=== PATIENT | female | born 1960 | race Caucasian/White ===

== ENCOUNTER 2018-10-26 11:25 | Emergency (ER) | payer OTHER ==
[~2018-10-26] VITALS: Ht 154.9 cm; Wt 81.8 kg
[~2018-10-26 11:25] MED LIST: METF-960 PO; QUET150T2 PO; SIMV-261 PO
[2018-10-26] MEDS ORDERED: SITA100 PO (11:45)
[2018-10-26] MEDS ORDERED: ZIPR60CA2 PO (11:45)
[2018-10-26] MEDS ORDERED: ATOR40TA28 PO (11:45)
[2018-10-26] MEDS ORDERED: HYD50 PO (11:45)
[2018-10-26] MEDS ORDERED: TRAZ-252 PO (11:45)
[2018-10-26] MEDS ORDERED: CITA-106 PO (11:45)
[2018-10-26] MEDS ORDERED: PIOG30TA10 PO (11:46)
[2018-10-26] MEDS ORDERED: LEVO50 PO (11:46)
[2018-10-26 11:51] LABS: GLUCOSE,POINT OF CARE 177 MG/DL (70-110)
[2018-10-26 13:00] LABS: BASOPHILS % (AUTO) 0.6 % (0.0-2.0); EOSINOPHILS % (AUTO) 1.2 % (1.0-6.0); HEMATOCRIT 40.1 % (36-46); HEMOGLOBIN 12.8 g/dL (12.0-16.0); LYMPHOCYTES # (AUTO) 1.7 K/uL (1.0-4.8); LYMPHOCYTES % (AUTO) 14.4 % (22.0-44.0); MEAN CORPUSCULAR HEMOGLOBIN 27.6 pg (26.0-34.0); MEAN CORPUSCULAR HGB CONC 31.9 G/dL (31.0-37.0); MEAN CORPUSCULAR VOLUME 87 fL (80-100); MONOCYTES # (AUTO) 0.5 K/uL (0.1-1.0); MONOCYTES % (AUTO) 4.1 % (2.0-9.0); NEUTROPHILS # (AUTO) 9.7 K/uL (1.8-7.7); NEUTROPHILS % (AUTO) 79.7 % (40.0-70.0); PLATELET COUNT (AUTO) 231 K/uL (150-450); RED BLOOD CELL COUNT(AUTO) 4.63 MIL/uL (4.00-5.20); RED CELL DISTRIBUTION WIDTH 14.2 % (11.5-14.5)
[2018-10-26 13:10] LABS: ANION GAP 10 mmol/L (8-16); CALCIUM, TOTAL 9.4 mg/dL (8.8-10.5); CARBON DIOXIDE 26 mmol/L (22-29); CHLORIDE 103 mmol/L (98-107); CREATININE 0.86 mg/dL (0.60-1.30); GLOMERULAR FILTR. RATE CALC > 60 mL/min (>60); GLUCOSE,RANDOM 177 mg/dL (70-110); POTASSIUM 3.9 mmol/L (3.5-5.1); SODIUM SERUM 139 mmol/L (136-145); UREA NITROGEN, BLOOD 13 mg/dL (7-18)
[2018-10-26] MEDS ORDERED: SODIUM CHLORIDE 0.9% 1,000 ML IV ONE (13:15)
[2018-10-26] MEDS ORDERED: MORPHINE SULFATE 2 MG/ML SYRINGE IVP ONE (13:15)
[2018-10-26] MEDS ORDERED: ONDANSETRON HCL 4 MG/2 ML VIAL IVP ONE (13:15)
[2018-10-26 13:16] LABS: ALANINE AMINOTRANSFERASE 28 U/L (12-78); ALBUMIN 3.8 g/dL (3.4-5.0); ALKALINE PHOSPHATASE 103 U/L (46-116); ASPARTATE AMINOTRANSFERASE 15 U/L (15-37); BILIRUBIN,TOTAL 0.9 mg/dL (0.1-1.0); LIPASE 99 U/L (73-393); TOTAL PROTEIN, SERUM 7.6 g/dL (6.4-8.2)
[2018-10-26 14:43] VITALS: BP 106/56
== END 2018-10-26 14:58 | disposition home or self-care (01) ==
LOC: EMS 11:28
DX: R19.7 Diarrhea, unspecified (principal); R11.2 Nausea with vomiting, unspecified; I10 Essential (primary) hypertension; E78.00 Pure hypercholesterolemia, unspecified; E03.9 Hypothyroidism, unspecified; E11.9 Type 2 diabetes mellitus without complications; F32.9 Major depressive disorder, single episode, unspecified
CPT/HCPCS: 36415; 80053; 81002; 82962; 83690; 85025; 96361; 96374; 96375; 99283; J2270; J2405; J7030

== ENCOUNTER 2021-10-30 11:33 | Inpatient (IN) | payer MEDICAID, OTHER ==
[~2021-10-30] VITALS: Ht 154.9 cm; Wt 75.8 kg
[~2021-10-30 11:33] MED LIST changes: +ATOR40TA28 PO; +CITA-144 PO; +HYDR-4584 PO; +LEVO50 PO; +METF-1211 PO; -METF-960 PO; +PIOG30TA10 PO; -QUET150T2 PO; -SIMV-261 PO; +SITA100 PO; +TRAZ-252 PO; +ZIPR60CA29 PO
[2021-10-30] MEDS ORDERED: HYDROCODONE/ACETAMINOPHEN 5-325 MG TABLET PO ONE ×2 (16:15→21:30)
[2021-10-30] MEDS ORDERED: SODIUM CHLORIDE 0.9% 1,000 ML IV ONE ×2 (16:15→23:00)
[2021-10-30 16:17] LABS: BASOPHILS % (AUTO) 0.3 % (0.0-2.0); EOSINOPHILS % (AUTO) 0.2 % (1.0-6.0); HEMATOCRIT 41.7 % (36-46); HEMOGLOBIN 13.7 g/dL (12.0-16.0); LYMPHOCYTES # (AUTO) 2.3 K/uL (1.0-4.8); LYMPHOCYTES % (AUTO) 13.4 % (22.0-44.0); MEAN CORPUSCULAR HEMOGLOBIN 27.3 pg (26.0-34.0); MEAN CORPUSCULAR HGB CONC 32.9 G/dL (31.0-37.0); MEAN CORPUSCULAR VOLUME 83 fL (80-100); MONOCYTES # (AUTO) 0.8 K/uL (0.1-1.0); MONOCYTES % (AUTO) 4.7 % (2.0-9.0); NEUTROPHILS # (AUTO) 14.1 K/uL (1.8-7.7); NEUTROPHILS % (AUTO) 81.4 % (40.0-70.0); PLATELET COUNT (AUTO) 237 K/uL (150-450); RED BLOOD CELL COUNT(AUTO) 5.02 MIL/uL (4.00-5.20); RED CELL DISTRIBUTION WIDTH 14.8 % (11.5-14.5)
[2021-10-30] MEDS ORDERED: INSULIN REGULAR, HUMAN 100 UNITS/ML IVP ONE ×3 (16:30→21:45)
[2021-10-30 16:34] LABS: ALANINE AMINOTRANSFERASE 25 U/L (12-78); ALBUMIN 3.6 g/dL (3.4-5.0); ALKALINE PHOSPHATASE 95 U/L (46-116); ANION GAP 10 mmol/L (8-16); ASPARTATE AMINOTRANSFERASE 9 U/L (15-37); BILIRUBIN,TOTAL 1.3 mg/dL (0.1-1.0); CALCIUM, TOTAL 9.3 mg/dL (8.8-10.5); CARBON DIOXIDE 25 mmol/L (22-29); CHLORIDE 99 mmol/L (98-107); CREATININE 1.04 mg/dL (0.60-1.30); POTASSIUM 3.9 mmol/L (3.5-5.1); SODIUM SERUM 134 mmol/L (136-145); TOTAL PROTEIN, SERUM 7.5 g/dL (6.4-8.2); UREA NITROGEN, BLOOD 26 mg/dL (7-18)
[2021-10-30 16:36] LABS: GLOMERULAR FILTR. RATE CALC 54 mL/min (>60); GLUCOSE,RANDOM 403 mg/dL (70-110)
[2021-10-30] MEDS ORDERED: ZOLPIDEM TARTRATE 10 MG TABLET PO PRN (18:00)
[2021-10-30] MEDS ORDERED: HALOPERIDOL 5 MG TABLET PO PRN (18:00)
[2021-10-30] MEDS ORDERED: LORazepam 2 MG TABLET PO PRN (18:00)
[2021-10-30] MEDS ORDERED: DEXTROSE 50%-WATER 25 GM/50 ML SYRINGE IVP PRN (18:45)
[2021-10-30 18:46] LABS: GLUCOSE,POINT OF CARE 359 MG/DL (70-110)
[2021-10-30 18:58] LABS: COVID AG,FIA SOURCE NASAL SWAB
[2021-10-30 19:01] LABS: AMPHET/METH SCREEN,URINE NEGATIVE (NEGATIVE); BARBITURATE SCREEN, URINE NEGATIVE (NEGATIVE); BENZODIAZEPINES SCREEN,URINE NEGATIVE (NEGATIVE); CANNABINOID SCREEN,URINE NEGATIVE (NEGATIVE); COCAINE SCREEN,URINE NEGATIVE (NEGATIVE); METHADONE SCREEN, URINE NEGATIVE (NEGATIVE); OPIATE SCREEN,URINE POSITIVE (NEGATIVE)
[2021-10-30 19:08] LABS: PHENCYCLIDINE SCREEN,URINE NEGATIVE (NEGATIVE)
[2021-10-31 01:18] LABS: APPEARANCE,URINE CLEAR (CLEAR); BILIRUBIN,URINE NEGATIVE (NEGATIVE); GLUCOSE, URINE (UA) >=1000 mg/dL (NEGATIVE); LEUKOCYTE ESTERASE ,URINE NEGATIVE (NEGATIVE); NITRATE,URINE NEGATIVE (NEGATIVE); OCCULT BLOOD,URINE NEGATIVE (NEGATIVE); PROTEIN,URINE TRACE mg/dL (NEGATIVE); SPECIFIC GRAVITIY, URINE 1.034 (1.003-1.030); UROBILINOGEN,URINE <=1.0 mg/dL (<=1.0)
[2021-10-31 01:33] LABS: BACTERIA,URINE None Seen /HPF (None Seen); RBC,URINE None Seen /HPF (0-2); WBC,URINE 0-2 /HPF (0-5)
[2021-10-31] MEDS ORDERED: INSULIN REGULAR, HUMAN 100 UNITS/ML IVP ONE (02:00)
[2021-10-31 05:57] VITALS: BP 142/78
[2021-10-31 06:01] VITALS: BP 142/78
[2021-10-31] MEDS ORDERED: PNEUMOCOCCAL VACCINE POLYVALENT 0.5 ML VIAL [PPSV23] IM. ONE (06:15)
[2021-10-31] MEDS ORDERED: INSULIN LISPRO 100 UNITS/ML SQ SCH (06:30)
[2021-10-31] MEDS ORDERED: ALBUTEROL SULFATE HFA 90 MCG/PUFF 8 GM INHALER IH PRN (06:45)
[2021-10-31] MEDS ORDERED: DOCUSATE SODIUM 100 MG CAPSULE PO PRN (06:45)
[2021-10-31] MEDS ORDERED: PETROLATUM,WHITE 28 GM JELLY TP PRN (06:45)
[2021-10-31] MEDS ORDERED: MAGNESIUM HYDROXIDE SUSPENSION 30 ML UDCUP PO PRN (06:45)
[2021-10-31] MEDS ORDERED: CloNIDine HCL 0.1 MG TABLET PO PRN (06:45)
[2021-10-31] MEDS ORDERED: NICOTINE 14 MG/24 HOUR PATCH TD PRN (06:45)
[2021-10-31] MEDS ORDERED: ONDANSETRON HCL 4 MG TABLET PO PRN (06:45)
[2021-10-31] MEDS ORDERED: MAG HYDROX/AL HYDROX/SIMETH ES 30 ML SUSPENSION UDCUP PO PRN (06:45)
[2021-10-31] MEDS ORDERED: GuaiFENesin/D-METHORPHAN [SUGAR-FREE] 200-20MG/10 ML SYRUP UDCUP PO PRN (06:45)
[2021-10-31] MEDS: INSULIN LISPRO 100 UNITS/ML SQ PRN ×4 (07:08→21:08)
[2021-10-31] MEDS: MetFORMIN HCL 500 MG TABLET PO SCH ×2 (07:17→17:17)
[2021-10-31] MEDS: LEVOTHYROXINE SODIUM 50 MCG TABLET PO SCH (07:17)
[2021-10-31 08:00] VITALS: BP 119/60
[2021-10-31 08:48] LABS: GLUCOSE,POINT OF CARE 364 MG/DL (70-110)
[2021-10-31 08:48] LABS: GLUCOSE,POINT OF CARE 403 MG/DL (70-110)
[2021-10-31 08:54] LABS: GLUCOSE,POINT OF CARE 286 MG/DL (70-110)
[2021-10-31 08:54] LABS: GLUCOSE,POINT OF CARE 323 MG/DL (70-110)
[2021-10-31 08:54] LABS: GLUCOSE,POINT OF CARE 401 MG/DL (70-110)
[2021-10-31 08:54] LABS: GLUCOSE,POINT OF CARE 383 MG/DL (70-110)
[2021-10-31 08:58] LABS: GLUCOMETER DEV NAME(LOC) 3E.I 2; GLUCOSE,POINT OF CARE 296 MG/DL (70-110)
[2021-10-31] MEDS: PIOGLITAZONE HCL 30 MG TABLET PO SCH (09:48)
[2021-10-31] MEDS: SitaGLIPtin PHOSPHATE 100 MG TABLET PO SCH (09:48)
[2021-10-31] MEDS: ATORVASTATIN CALCIUM 40 MG TABLET PO SCH (09:49)
[2021-10-31 11:21] LABS: GLUCOMETER DEV NAME(LOC) 3E.I 2; GLUCOSE,POINT OF CARE 276 MG/DL (70-110)
[2021-10-31] MEDS: ESCITALOPRAM OXALATE 20 MG TABLET PO SCH (12:10)
[2021-10-31 16:26] VITALS: BP 130/89
[2021-10-31] MEDS: ZIPRASIDONE HCL 60 MG CAPSULE PO SCH (17:09)
[2021-10-31 17:21] LABS: GLUCOMETER DEV NAME(LOC) 3E.I 2; GLUCOSE,POINT OF CARE 229 MG/DL (70-110)
[2021-10-31] MEDS: TraZODone HCL 50 MG TABLET PO SCH (21:01)
[2021-11-01 01:31] LABS: GLUCOMETER DEV NAME(LOC) 3E.I 2; GLUCOSE,POINT OF CARE 264 MG/DL (70-110)
[2021-11-01 06:01] LABS: GLUCOMETER DEV NAME(LOC) 3E.I 2; GLUCOSE,POINT OF CARE 315 MG/DL (70-110)
[2021-11-01] MEDS: LEVOTHYROXINE SODIUM 50 MCG TABLET PO SCH (06:33)
[2021-11-01] MEDS: ZIPRASIDONE HCL 60 MG CAPSULE PO SCH ×2 (06:33→17:33)
[2021-11-01] MEDS: MetFORMIN HCL 500 MG TABLET PO SCH ×2 (06:33→17:33)
[2021-11-01] MEDS: INSULIN LISPRO 100 UNITS/ML SQ PRN ×4 (06:34→20:41)
[2021-11-01 08:57] VITALS: BP 122/71
[2021-11-01] MEDS: SitaGLIPtin PHOSPHATE 100 MG TABLET PO SCH (09:27)
[2021-11-01] MEDS: PIOGLITAZONE HCL 30 MG TABLET PO SCH (09:27)
[2021-11-01] MEDS: ESCITALOPRAM OXALATE 20 MG TABLET PO SCH (09:27)
[2021-11-01] MEDS: ATORVASTATIN CALCIUM 40 MG TABLET PO SCH (09:27)
[2021-11-01 11:26] LABS: GLUCOMETER DEV NAME(LOC) 3E.I 2; GLUCOSE,POINT OF CARE 309 MG/DL (70-110)
[2021-11-01 16:16] VITALS: BP 115/81
[2021-11-01 16:31] LABS: GLUCOMETER DEV NAME(LOC) 3E.I 2; GLUCOSE,POINT OF CARE 219 MG/DL (70-110)
[2021-11-01] MEDS: IBUPROFEN 400 MG TABLET PO PRN (19:16)
[2021-11-01] MEDS: INSULIN GLARGINE,HUM.REC.ANLOG 100 UNITS/ML SQ SCH (20:40)
[2021-11-01] MEDS: TraZODone HCL 50 MG TABLET PO SCH (20:41)
[2021-11-01 20:51] LABS: GLUCOMETER DEV NAME(LOC) 3E.I 2; GLUCOSE,POINT OF CARE 296 MG/DL (70-110)
[2021-11-02 06:11] LABS: GLUCOMETER DEV NAME(LOC) 3E.I 2; GLUCOSE,POINT OF CARE 282 MG/DL (70-110)
[2021-11-02] MEDS: LEVOTHYROXINE SODIUM 50 MCG TABLET PO SCH (06:26)
[2021-11-02] MEDS: MetFORMIN HCL 500 MG TABLET PO SCH ×2 (06:47→17:30)
[2021-11-02] MEDS: ZIPRASIDONE HCL 60 MG CAPSULE PO SCH ×2 (06:47→17:30)
[2021-11-02] MEDS: INSULIN LISPRO 100 UNITS/ML SQ PRN ×4 (06:49→20:55)
[2021-11-02 08:00] VITALS: BP 98/55
[2021-11-02] MEDS: ESCITALOPRAM OXALATE 20 MG TABLET PO SCH (09:06)
[2021-11-02] MEDS: ATORVASTATIN CALCIUM 40 MG TABLET PO SCH (09:06)
[2021-11-02] MEDS: PIOGLITAZONE HCL 30 MG TABLET PO SCH (09:06)
[2021-11-02] MEDS: SitaGLIPtin PHOSPHATE 100 MG TABLET PO SCH (09:06)
[2021-11-02 11:31] LABS: GLUCOMETER DEV NAME(LOC) 3E.I 2; GLUCOSE,POINT OF CARE 271 MG/DL (70-110)
[2021-11-02 12:00] VITALS: BP 104/55
[2021-11-02] MEDS: IBUPROFEN 400 MG TABLET PO PRN (12:04)
[2021-11-02 16:08] VITALS: BP 120/57
[2021-11-02 16:37] LABS: GLUCOMETER DEV NAME(LOC) 3E.I 2; GLUCOSE,POINT OF CARE 276 MG/DL (70-110)
[2021-11-02] MEDS: TraZODone HCL 50 MG TABLET PO SCH (20:49)
[2021-11-02] MEDS: INSULIN GLARGINE,HUM.REC.ANLOG 100 UNITS/ML SQ SCH (20:55)
[2021-11-02 21:20] LABS: GLUCOMETER DEV NAME(LOC) 3E.I 2; GLUCOSE,POINT OF CARE 214 MG/DL (70-110)
[2021-11-03 03:45] VITALS: BP 117/69
[2021-11-03] MEDS: IBUPROFEN 400 MG TABLET PO PRN ×2 (03:47→13:46)
[2021-11-03 06:21] LABS: GLUCOMETER DEV NAME(LOC) 3E.I 2; GLUCOSE,POINT OF CARE 256 MG/DL (70-110)
[2021-11-03] MEDS: LEVOTHYROXINE SODIUM 50 MCG TABLET PO SCH (06:58)
[2021-11-03] MEDS: ZIPRASIDONE HCL 60 MG CAPSULE PO SCH ×2 (06:58→16:42)
[2021-11-03] MEDS: MetFORMIN HCL 500 MG TABLET PO SCH ×2 (06:59→16:42)
[2021-11-03] MEDS: INSULIN LISPRO 100 UNITS/ML SQ PRN ×4 (07:07→21:03)
[2021-11-03 08:30] VITALS: BP 109/60
[2021-11-03] MEDS: PIOGLITAZONE HCL 30 MG TABLET PO SCH (08:58)
[2021-11-03] MEDS: ESCITALOPRAM OXALATE 20 MG TABLET PO SCH (08:58)
[2021-11-03] MEDS: ATORVASTATIN CALCIUM 40 MG TABLET PO SCH (08:58)
[2021-11-03] MEDS: SitaGLIPtin PHOSPHATE 100 MG TABLET PO SCH (08:58)
[2021-11-03 11:04] VITALS: BP 116/74
[2021-11-03] MEDS: ACETAMINOPHEN 325 MG TABLET PO PRN ×2 (11:04→20:26)
[2021-11-03 11:36] LABS: GLUCOMETER DEV NAME(LOC) 3E.I 2; GLUCOSE,POINT OF CARE 206 MG/DL (70-110)
[2021-11-03 13:46] VITALS: BP 120/76
[2021-11-03 16:15] VITALS: BP 124/65
[2021-11-03 16:46] LABS: GLUCOMETER DEV NAME(LOC) 3E.I 2; GLUCOSE,POINT OF CARE 314 MG/DL (70-110)
[2021-11-03] MEDS: TraZODone HCL 50 MG TABLET PO SCH (20:15)
[2021-11-03 20:22] VITALS: BP 122/78
[2021-11-03] MEDS: INSULIN GLARGINE,HUM.REC.ANLOG 100 UNITS/ML SQ SCH (21:02)
[2021-11-03 21:46] LABS: GLUCOMETER DEV NAME(LOC) 3E.I 2; GLUCOSE,POINT OF CARE 192 MG/DL (70-110)
[2021-11-04 05:53] VITALS: BP 116/68
[2021-11-04] MEDS: IBUPROFEN 400 MG TABLET PO PRN (05:57)
[2021-11-04 06:11] LABS: GLUCOMETER DEV NAME(LOC) 3E.I 2; GLUCOSE,POINT OF CARE 217 MG/DL (70-110)
[2021-11-04] MEDS: LEVOTHYROXINE SODIUM 50 MCG TABLET PO SCH (06:59)
[2021-11-04] MEDS: ZIPRASIDONE HCL 60 MG CAPSULE PO SCH ×2 (06:59→16:27)
[2021-11-04] MEDS: MetFORMIN HCL 500 MG TABLET PO SCH ×2 (07:03→16:27)
[2021-11-04 07:09] VITALS: BP 117/65
[2021-11-04] MEDS: TraMADol HCL 50 MG TABLET PO PRN (07:09)
[2021-11-04] MEDS: INSULIN LISPRO 100 UNITS/ML SQ PRN ×3 (07:21→17:23)
[2021-11-04 08:38] VITALS: BP 134/65
[2021-11-04] MEDS: PIOGLITAZONE HCL 30 MG TABLET PO SCH (08:54)
[2021-11-04] MEDS: ATORVASTATIN CALCIUM 40 MG TABLET PO SCH (08:54)
[2021-11-04] MEDS: SitaGLIPtin PHOSPHATE 100 MG TABLET PO SCH (08:54)
[2021-11-04] MEDS: ESCITALOPRAM OXALATE 20 MG TABLET PO SCH (08:54)
[2021-11-04 11:36] LABS: GLUCOMETER DEV NAME(LOC) 3E.I 2; GLUCOSE,POINT OF CARE 184 MG/DL (70-110)
[2021-11-04] MEDS: LOPERAMIDE HCL 2 MG CAPSULE PO PRN ×2 (14:34→19:30)
[2021-11-04 16:22] VITALS: BP 116/65
[2021-11-04 17:26] LABS: GLUCOMETER DEV NAME(LOC) 3E.I 2; GLUCOSE,POINT OF CARE 184 MG/DL (70-110)
[2021-11-04] MEDS: TraZODone HCL 50 MG TABLET PO SCH (20:17)
[2021-11-04 20:41] LABS: GLUCOMETER DEV NAME(LOC) 3E.I 2; GLUCOSE,POINT OF CARE 133 MG/DL (70-110)
[2021-11-04] MEDS: INSULIN GLARGINE,HUM.REC.ANLOG 100 UNITS/ML SQ SCH (21:24)
[2021-11-05 05:41] LABS: GLUCOMETER DEV NAME(LOC) 3E.I 2; GLUCOSE,POINT OF CARE 164 MG/DL (70-110)
[2021-11-05] MEDS: ZIPRASIDONE HCL 60 MG CAPSULE PO SCH ×2 (06:37→16:20)
[2021-11-05] MEDS: LEVOTHYROXINE SODIUM 50 MCG TABLET PO SCH (06:37)
[2021-11-05] MEDS: MetFORMIN HCL 500 MG TABLET PO SCH ×2 (06:37→16:20)
[2021-11-05] MEDS: INSULIN LISPRO 100 UNITS/ML SQ PRN ×4 (06:38→20:46)
[2021-11-05 07:02] LABS: COVID AG,FIA SOURCE NASAL SWAB
[2021-11-05] MEDS: ESCITALOPRAM OXALATE 20 MG TABLET PO SCH (08:19)
[2021-11-05] MEDS: SitaGLIPtin PHOSPHATE 100 MG TABLET PO SCH (08:19)
[2021-11-05] MEDS: ATORVASTATIN CALCIUM 40 MG TABLET PO SCH (08:19)
[2021-11-05] MEDS: PIOGLITAZONE HCL 30 MG TABLET PO SCH (08:20)
[2021-11-05 08:23] VITALS: BP 113/59
[2021-11-05] MEDS: IBUPROFEN 400 MG TABLET PO PRN (08:23)
[2021-11-05 08:54] VITALS: BP 113/59
[2021-11-05 09:23] VITALS: BP 98/62
[2021-11-05 11:41] LABS: GLUCOMETER DEV NAME(LOC) 3E.I 2; GLUCOSE,POINT OF CARE 185 MG/DL (70-110)
[2021-11-05 16:15] VITALS: BP 118/47
[2021-11-05 16:55] LABS: GLUCOMETER DEV NAME(LOC) 3E.I 2; GLUCOSE,POINT OF CARE 178 MG/DL (70-110)
[2021-11-05 20:36] LABS: GLUCOMETER DEV NAME(LOC) 3E.I 2; GLUCOSE,POINT OF CARE 195 MG/DL (70-110)
[2021-11-05] MEDS: TraZODone HCL 50 MG TABLET PO SCH (20:44)
[2021-11-05] MEDS: INSULIN GLARGINE,HUM.REC.ANLOG 100 UNITS/ML SQ SCH (20:45)
[2021-11-06 05:56] VITALS: BP 125/81
[2021-11-06] MEDS: IBUPROFEN 400 MG TABLET PO PRN (05:56)
[2021-11-06 06:26] LABS: GLUCOMETER DEV NAME(LOC) 3E.I 2; GLUCOSE,POINT OF CARE 149 MG/DL (70-110)
[2021-11-06] MEDS: LEVOTHYROXINE SODIUM 50 MCG TABLET PO SCH (06:42)
[2021-11-06] MEDS: MetFORMIN HCL 500 MG TABLET PO SCH ×2 (06:42→16:52)
[2021-11-06] MEDS: INSULIN LISPRO 100 UNITS/ML SQ PRN ×3 (06:58→16:48)
[2021-11-06] MEDS: ZIPRASIDONE HCL 60 MG CAPSULE PO SCH ×2 (07:15→16:52)
[2021-11-06 08:00] VITALS: BP 138/50
[2021-11-06] MEDS: ATORVASTATIN CALCIUM 40 MG TABLET PO SCH (10:03)
[2021-11-06] MEDS: SitaGLIPtin PHOSPHATE 100 MG TABLET PO SCH (10:04)
[2021-11-06] MEDS: ESCITALOPRAM OXALATE 20 MG TABLET PO SCH (10:04)
[2021-11-06] MEDS: PIOGLITAZONE HCL 30 MG TABLET PO SCH (10:04)
[2021-11-06 11:46] LABS: GLUCOMETER DEV NAME(LOC) 3E.I 2; GLUCOSE,POINT OF CARE 214 MG/DL (70-110)
[2021-11-06 16:09] VITALS: BP 109/53
[2021-11-06 16:16] LABS: GLUCOMETER DEV NAME(LOC) 3E.I 2; GLUCOSE,POINT OF CARE 207 MG/DL (70-110)
[2021-11-06] MEDS: TraZODone HCL 50 MG TABLET PO SCH (20:48)
[2021-11-06] MEDS: INSULIN GLARGINE,HUM.REC.ANLOG 100 UNITS/ML SQ SCH (20:54)
[2021-11-06 21:11] LABS: GLUCOMETER DEV NAME(LOC) 3E.I 2; GLUCOSE,POINT OF CARE 131 MG/DL (70-110)
[2021-11-07 02:45] VITALS: BP 140/85
[2021-11-07] MEDS: TraMADol HCL 50 MG TABLET PO PRN ×2 (02:47→09:29)
[2021-11-07] MEDS: LEVOTHYROXINE SODIUM 50 MCG TABLET PO SCH (06:16)
[2021-11-07 06:21] LABS: GLUCOMETER DEV NAME(LOC) 3E.I 2; GLUCOSE,POINT OF CARE 144 MG/DL (70-110)
[2021-11-07] MEDS: MetFORMIN HCL 500 MG TABLET PO SCH ×2 (06:40→17:16)
[2021-11-07] MEDS: ZIPRASIDONE HCL 60 MG CAPSULE PO SCH ×2 (06:40→17:16)
[2021-11-07] MEDS: INSULIN LISPRO 100 UNITS/ML SQ PRN ×3 (06:42→20:55)
[2021-11-07 08:30] VITALS: BP 130/78
[2021-11-07] MEDS: PIOGLITAZONE HCL 30 MG TABLET PO SCH (09:27)
[2021-11-07] MEDS: ATORVASTATIN CALCIUM 40 MG TABLET PO SCH (09:27)
[2021-11-07] MEDS: ESCITALOPRAM OXALATE 20 MG TABLET PO SCH (09:27)
[2021-11-07] MEDS: SitaGLIPtin PHOSPHATE 100 MG TABLET PO SCH (09:27)
[2021-11-07 11:51] LABS: GLUCOMETER DEV NAME(LOC) 3E.I 2; GLUCOSE,POINT OF CARE 168 MG/DL (70-110)
[2021-11-07 16:00] VITALS: BP 137/76
[2021-11-07 17:31] LABS: GLUCOMETER DEV NAME(LOC) 3E.I 2; GLUCOSE,POINT OF CARE 116 MG/DL (70-110)
[2021-11-07 20:51] LABS: GLUCOMETER DEV NAME(LOC) 3E.I 2; GLUCOSE,POINT OF CARE 161 MG/DL (70-110)
[2021-11-07] MEDS: TraZODone HCL 50 MG TABLET PO SCH (20:54)
[2021-11-07] MEDS: INSULIN GLARGINE,HUM.REC.ANLOG 100 UNITS/ML SQ SCH (20:54)
[2021-11-08 05:46] LABS: GLUCOMETER DEV NAME(LOC) 3E.I 2; GLUCOSE,POINT OF CARE 228 MG/DL (70-110)
[2021-11-08] MEDS: LEVOTHYROXINE SODIUM 50 MCG TABLET PO SCH (06:37)
[2021-11-08] MEDS: MetFORMIN HCL 500 MG TABLET PO SCH ×2 (06:37→16:29)
[2021-11-08] MEDS: ZIPRASIDONE HCL 60 MG CAPSULE PO SCH ×2 (06:37→16:29)
[2021-11-08] MEDS: INSULIN LISPRO 100 UNITS/ML SQ PRN ×3 (06:38→17:22)
[2021-11-08 08:30] VITALS: BP 104/64
[2021-11-08] MEDS: PIOGLITAZONE HCL 30 MG TABLET PO SCH (08:54)
[2021-11-08] MEDS: SitaGLIPtin PHOSPHATE 100 MG TABLET PO SCH (08:54)
[2021-11-08] MEDS: ESCITALOPRAM OXALATE 20 MG TABLET PO SCH (08:54)
[2021-11-08] MEDS: ATORVASTATIN CALCIUM 40 MG TABLET PO SCH (08:54)
[2021-11-08 11:41] LABS: GLUCOMETER DEV NAME(LOC) 3E.I 2; GLUCOSE,POINT OF CARE 181 MG/DL (70-110)
[2021-11-08 15:02] VITALS: BP 120/68
[2021-11-08] MEDS: IBUPROFEN 400 MG TABLET PO PRN (15:03)
[2021-11-08 16:00] VITALS: BP 107/68
[2021-11-08 16:11] LABS: GLUCOMETER DEV NAME(LOC) 3E.I 2; GLUCOSE,POINT OF CARE 173 MG/DL (70-110)
[2021-11-08] MEDS: TraZODone HCL 50 MG TABLET PO SCH (20:31)
[2021-11-08] MEDS: INSULIN GLARGINE,HUM.REC.ANLOG 100 UNITS/ML SQ SCH (21:08)
[2021-11-08 21:20] LABS: GLUCOMETER DEV NAME(LOC) 3E.I 2; GLUCOSE,POINT OF CARE 134 MG/DL (70-110)
[2021-11-09] MEDS: TraMADol HCL 50 MG TABLET PO PRN (02:48)
[2021-11-09 02:51] VITALS: BP 136/73
[2021-11-09 06:01] LABS: GLUCOMETER DEV NAME(LOC) 3E.I 2; GLUCOSE,POINT OF CARE 163 MG/DL (70-110)
[2021-11-09] MEDS: LEVOTHYROXINE SODIUM 50 MCG TABLET PO SCH (06:16)
[2021-11-09] MEDS: ZIPRASIDONE HCL 60 MG CAPSULE PO SCH ×2 (06:51→16:30)
[2021-11-09] MEDS: MetFORMIN HCL 500 MG TABLET PO SCH ×2 (06:51→16:30)
[2021-11-09] MEDS: INSULIN LISPRO 100 UNITS/ML SQ PRN ×2 (06:52→11:41)
[2021-11-09 08:06] VITALS: BP 108/62
[2021-11-09] MEDS: ESCITALOPRAM OXALATE 20 MG TABLET PO SCH (08:28)
[2021-11-09] MEDS: SitaGLIPtin PHOSPHATE 100 MG TABLET PO SCH (08:28)
[2021-11-09] MEDS: ATORVASTATIN CALCIUM 40 MG TABLET PO SCH (08:28)
[2021-11-09] MEDS: PIOGLITAZONE HCL 30 MG TABLET PO SCH (08:28)
[2021-11-09 10:21] VITALS: BP 123/68
[2021-11-09] MEDS: IBUPROFEN 400 MG TABLET PO PRN (10:21)
[2021-11-09 11:51] LABS: GLUCOMETER DEV NAME(LOC) 3E.I 2; GLUCOSE,POINT OF CARE 211 MG/DL (70-110)
[2021-11-09 14:21] LABS: GLUCOMETER DEV NAME(LOC) 3E.I 2; GLUCOSE,POINT OF CARE 103 MG/DL (70-110)
[2021-11-09] MEDS ORDERED: ATOR40TA28 PO (14:59)
[2021-11-09] MEDS ORDERED: METF-1211 PO (14:59)
[2021-11-09] MEDS ORDERED: LEVO50 PO (14:59)
[2021-11-10] MEDS ORDERED: ZIPR60CA2 PO ×2 (17:04→17:09)
[2021-11-10] MEDS ORDERED: TRAZ-184 PO ×2 (17:04→17:09)
[2021-11-10] MEDS ORDERED: ESCI20TA87 PO (17:09)
== END 2021-11-09 17:05 | disposition home or self-care (01) | DRG 751 ==
LOC: EMS 11:33 → 3EI 10-31 04:49
PROVIDERS: ADMIT Psychiatry & Neurology Child & Adolescent Psychiatry; ATTEND Psychiatry & Neurology Child & Adolescent Psychiatry
DX: F33.2 Major depressive disorder, recurrent severe without psychotic features (principal); E87.1 Hypo-osmolality and hyponatremia; R45.851 Suicidal ideations; E11.9 Type 2 diabetes mellitus without complications; Z91.19 Patient's noncompliance with other medical treatment and regimen; D72.829 Elevated white blood cell count, unspecified; E03.9 Hypothyroidism, unspecified; E78.00 Pure hypercholesterolemia, unspecified; F41.0 Panic disorder [episodic paroxysmal anxiety]; Z20.822 Contact with and (suspected) exposure to COVID-19; G89.29 Other chronic pain; I10 Essential (primary) hypertension; Z79.899 Other long term (current) drug therapy
CPT/HCPCS: 80053; 81001; 82962; 84484; 85025; 93005; 99285; G0480; J1815; J7030; Q0162

== ENCOUNTER 2022-12-05 18:14 | Inpatient (IN) | payer MEDICAID, OTHER ==
[~2022-12-05] VITALS: Ht 154.9 cm; Wt 76.4 kg
[~2022-12-05 18:14] MED LIST changes: +ESCI20TA87 PO; +TRAZ-184 PO; +ZIPR60CA2 PO
[2022-12-05 20:11] LABS: PH,URINE DRUG SCREEN 6.5 (5.0-8.0)
[2022-12-05 20:19] LABS: ALCOHOL, URINE DRUG SCREEN NEGATIVE (NEGATIVE); AMPHET/METH SCREEN,URINE NEGATIVE (NEGATIVE); BARBITURATE SCREEN, URINE NEGATIVE (NEGATIVE); BENZODIAZEPINES SCREEN,URINE NEGATIVE (NEGATIVE); CANNABINOID SCREEN,URINE NEGATIVE (NEGATIVE); COCAINE SCREEN,URINE NEGATIVE (NEGATIVE); METHADONE SCREEN, URINE NEGATIVE (NEGATIVE); OPIATE SCREEN,URINE NEGATIVE (NEGATIVE); PHENCYCLIDINE SCREEN,URINE NEGATIVE (NEGATIVE)
[2022-12-05 20:26] LABS: BASOPHILS % (AUTO) 0.9 % (0.0-2.0); EOSINOPHILS % (AUTO) 1.6 % (1.0-6.0); HEMOGLOBIN 12.2 g/dL (12.0-16.0); LYMPHOCYTES # (AUTO) 2.4 K/uL (1.0-4.8); MEAN CORPUSCULAR HEMOGLOBIN 28.3 pg (26.0-34.0); MEAN CORPUSCULAR HGB CONC 32.9 G/dL (31.0-37.0); MEAN CORPUSCULAR VOLUME 86 fL (80-100); MONOCYTES # (AUTO) 0.4 K/uL (0.1-1.0); MONOCYTES % (AUTO) 3.9 % (2.0-9.0); NEUTROPHILS # (AUTO) 6.2 K/uL (1.8-7.7); NEUTROPHILS % (AUTO) 67.6 % (40.0-70.0); PLATELET COUNT (AUTO) 231 K/uL (150-450); RED CELL DISTRIBUTION WIDTH 15.2 % (11.5-14.5); WHITE BLOOD COUNT (AUTO) 9.2 K/uL (4.5-11.0)
[2022-12-05 20:36] LABS: ANION GAP 5 mmol/L (8-16); CALCIUM, TOTAL 8.5 mg/dL (8.8-10.5); CARBON DIOXIDE 30 mmol/L (22-29); CHLORIDE 104 mmol/L (98-107); CREATININE 0.85 mg/dL (0.60-1.30); GLOMERULAR FILTR. RATE CALC > 60 mL/min (>60); GLUCOSE,RANDOM 278 mg/dL (70-110); POTASSIUM 4.2 mmol/L (3.5-5.1); SODIUM SERUM 139 mmol/L (136-145); UREA NITROGEN, BLOOD 13 mg/dL (7-18)
[2022-12-05 20:41] LABS: ALANINE AMINOTRANSFERASE 23 U/L (12-78); ALBUMIN 3.4 g/dL (3.4-5.0); ALKALINE PHOSPHATASE 98 U/L (46-116); ASPARTATE AMINOTRANSFERASE 16 U/L (15-37); BILIRUBIN,TOTAL 0.5 mg/dL (0.1-1.0); TOTAL PROTEIN, SERUM 6.9 g/dL (6.4-8.2)
[2022-12-05 20:42] LABS: ALCOHOL, BLOOD (SERUM) < 3 mg/dL (0-10)
[2022-12-05 21:19] LABS: COVID AG,FIA SOURCE NASAL SWAB
[2022-12-05] MEDS ORDERED: QUEtiapine FUMARATE 100 MG TABLET PO PRN (21:30)
[2022-12-05] MEDS ORDERED: ZOLPIDEM TARTRATE 10 MG TABLET PO PRN (21:30)
[2022-12-05] MEDS ORDERED: LORazepam 2 MG TABLET PO PRN (21:30)
[2022-12-05 21:48] LABS: SARS-COV2 (COVID) ANTIGEN,FIA Negative (Negative)
[2022-12-05] MEDS ORDERED: ACETAMINOPHEN 325 MG TABLET PO ONE (22:30)
[2022-12-05] MEDS ORDERED: INSULIN REGULAR, HUMAN 100 UNITS/ML SQ ONE (23:00)
[2022-12-05] MEDS ORDERED: MetFORMIN HCL 500 MG ER TABLET PO ONE (23:00)
[2022-12-05 23:41] LABS: GLUCOMETER DEV NAME(LOC) ER.6; GLUCOSE,POINT OF CARE 193 MG/DL (70-110)
[2022-12-05 23:56] VITALS: BP 149/68; PULSE 66; RESP 16; TEMP 97.2
[2022-12-06] MEDS ORDERED: DEXTROSE 50%-WATER 25 GM/50 ML SYRINGE IVP PRN (00:15)
[2022-12-06] MEDS ORDERED: PNEUMOCOCCAL VACCINE POLYVALENT 0.5 ML SYRINGE [PPSV23] IM. ONE (04:15)
[2022-12-06 06:02] LABS: GLUCOMETER DEV NAME(LOC) 3E.C; GLUCOSE,POINT OF CARE 216 MG/DL (70-110)
[2022-12-06] MEDS: LEVOTHYROXINE SODIUM 50 MCG TABLET PO SCH (06:46)
[2022-12-06] MEDS: MetFORMIN HCL 500 MG TABLET PO SCH (06:46)
[2022-12-06] MEDS: INSULIN LISPRO 100 UNITS/ML SQ PRN ×4 (06:59→21:16)
[2022-12-06] MEDS ORDERED: PIOGLITAZONE HCL 15 MG TABLET PO SCH (09:00)
[2022-12-06] MEDS: SitaGLIPtin PHOSPHATE 100 MG TABLET PO SCH (10:01)
[2022-12-06] MEDS: ATORVASTATIN CALCIUM 40 MG TABLET PO SCH (10:01)
[2022-12-06 11:56] LABS: GLUCOMETER DEV NAME(LOC) 3E.I 2; GLUCOSE,POINT OF CARE 177 MG/DL (70-110)
[2022-12-06 13:08] VITALS: BP 137/77; PULSE 77; RESP 18; TEMP 97.5
[2022-12-06] MEDS: ESCITALOPRAM OXALATE 20 MG TABLET PO SCH (15:36)
[2022-12-06 16:42] LABS: GLUCOMETER DEV NAME(LOC) 3E.I 2; GLUCOSE,POINT OF CARE 198 MG/DL (70-110)
[2022-12-06] MEDS: ZIPRASIDONE HCL 60 MG CAPSULE PO SCH (17:16)
[2022-12-06] MEDS ORDERED: IBUPROFEN 400 MG TABLET PO PRN (18:15)
[2022-12-06] MEDS ORDERED: ACETAMINOPHEN 325 MG TABLET PO PRN (18:15)
[2022-12-06] MEDS ORDERED: GuaiFENesin/D-METHORPHAN [SUGAR-FREE] 200-20MG/10 ML SYRUP UDCUP PO PRN (18:15)
[2022-12-06] MEDS ORDERED: PETROLATUM,WHITE 28 GM JELLY TP PRN (18:15)
[2022-12-06] MEDS ORDERED: MAGNESIUM HYDROXIDE SUSPENSION 30 ML UDCUP PO PRN (18:15)
[2022-12-06] MEDS ORDERED: ONDANSETRON HCL 4 MG TABLET PO PRN (18:15)
[2022-12-06] MEDS ORDERED: NICOTINE 14 MG/24 HOUR PATCH TD PRN (18:15)
[2022-12-06] MEDS ORDERED: DOCUSATE SODIUM 100 MG CAPSULE PO PRN (18:15)
[2022-12-06] MEDS ORDERED: ALBUTEROL SULFATE HFA 90 MCG/PUFF 8 GM INHALER IH PRN (18:15)
[2022-12-06] MEDS ORDERED: CloNIDine HCL 0.1 MG TABLET PO PRN (18:15)
[2022-12-06] MEDS ORDERED: MAG HYDROX/AL HYDROX/SIMETH ES 30 ML SUSPENSION UDCUP PO PRN (18:15)
[2022-12-06] MEDS ORDERED: LOPERAMIDE HCL 2 MG CAPSULE PO PRN (18:15)
[2022-12-06 20:21] LABS: GLUCOMETER DEV NAME(LOC) 3E.C; GLUCOSE,POINT OF CARE 238 MG/DL (70-110)
[2022-12-06 20:33] VITALS: BP 125/65; PULSE 77; RESP 16; TEMP 97.4
[2022-12-06] MEDS: TraZODone HCL 50 MG TABLET PO SCH (20:55)
[2022-12-06] MEDS: INSULIN GLARGINE,HUM.REC.ANLOG 100 UNITS/ML SQ SCH (21:01)
[2022-12-07 05:47] LABS: GLUCOMETER DEV NAME(LOC) 3E.C; GLUCOSE,POINT OF CARE 207 MG/DL (70-110)
[2022-12-07] MEDS: LEVOTHYROXINE SODIUM 50 MCG TABLET PO SCH (06:49)
[2022-12-07] MEDS: ZIPRASIDONE HCL 60 MG CAPSULE PO SCH ×2 (06:49→16:45)
[2022-12-07] MEDS: MetFORMIN HCL 500 MG TABLET PO SCH (06:50)
[2022-12-07] MEDS: INSULIN LISPRO 100 UNITS/ML SQ PRN ×4 (07:03→21:00)
[2022-12-07 07:09] LABS: HEMOGLOBIN A1C 8.8 % (3.8-5.6)
[2022-12-07 07:23] LABS: CHOL/HDL RATIO 4.1 (3.9-5.7); THYROID STIMULATING HORMONE 1.94 uIU/mL (0.36-3.74)
[2022-12-07] MEDS: PIOGLITAZONE HCL 30 MG TABLET PO SCH (09:00)
[2022-12-07] MEDS: ATORVASTATIN CALCIUM 40 MG TABLET PO SCH (09:31)
[2022-12-07] MEDS: SitaGLIPtin PHOSPHATE 100 MG TABLET PO SCH (09:32)
[2022-12-07] MEDS: ESCITALOPRAM OXALATE 20 MG TABLET PO SCH (09:32)
[2022-12-07 11:21] VITALS: BP 97/52; PULSE 60; RESP 18; TEMP 97.7
[2022-12-07 12:11] LABS: GLUCOMETER DEV NAME(LOC) 3E.I 2; GLUCOSE,POINT OF CARE 197 MG/DL (70-110)
[2022-12-07 17:57] LABS: GLUCOMETER DEV NAME(LOC) 3E.I 2; GLUCOSE,POINT OF CARE 255 MG/DL (70-110)
[2022-12-07] MEDS: TraZODone HCL 50 MG TABLET PO SCH (20:05)
[2022-12-07 20:46] VITALS: BP 106/58; PULSE 67; RESP 18; TEMP 97.5
[2022-12-07 20:51] LABS: GLUCOMETER DEV NAME(LOC) 3E.C; GLUCOSE,POINT OF CARE 212 MG/DL (70-110)
[2022-12-07] MEDS: INSULIN GLARGINE,HUM.REC.ANLOG 100 UNITS/ML SQ SCH (21:00)
[2022-12-08 05:46] LABS: GLUCOMETER DEV NAME(LOC) 3E.C; GLUCOSE,POINT OF CARE 140 MG/DL (70-110)
[2022-12-08] MEDS: LEVOTHYROXINE SODIUM 50 MCG TABLET PO SCH (06:43)
[2022-12-08] MEDS: MetFORMIN HCL 500 MG TABLET PO SCH (06:44)
[2022-12-08] MEDS: ZIPRASIDONE HCL 60 MG CAPSULE PO SCH ×2 (06:44→17:15)
[2022-12-08] MEDS: PIOGLITAZONE HCL 30 MG TABLET PO SCH (08:55)
[2022-12-08] MEDS: ESCITALOPRAM OXALATE 20 MG TABLET PO SCH (08:55)
[2022-12-08] MEDS: ATORVASTATIN CALCIUM 40 MG TABLET PO SCH (08:55)
[2022-12-08] MEDS: SitaGLIPtin PHOSPHATE 100 MG TABLET PO SCH (08:55)
[2022-12-08] MEDS: INSULIN LISPRO 100 UNITS/ML SQ PRN ×3 (11:19→21:07)
[2022-12-08 11:26] LABS: GLUCOMETER DEV NAME(LOC) 3E.I 2; GLUCOSE,POINT OF CARE 143 MG/DL (70-110)
[2022-12-08 12:49] VITALS: BP 129/71; PULSE 73; RESP 18; TEMP 97.4
[2022-12-08 16:11] LABS: GLUCOMETER DEV NAME(LOC) 3E.I 2; GLUCOSE,POINT OF CARE 195 MG/DL (70-110)
[2022-12-08 20:05] VITALS: BP 107/58; PULSE 66; RESP 18; TEMP 96.8
[2022-12-08] MEDS: TraZODone HCL 50 MG TABLET PO SCH (21:04)
[2022-12-08] MEDS: INSULIN GLARGINE,HUM.REC.ANLOG 100 UNITS/ML SQ SCH (21:06)
[2022-12-08 22:41] LABS: GLUCOMETER DEV NAME(LOC) 3E.C; GLUCOSE,POINT OF CARE 227 MG/DL (70-110)
[2022-12-09] MEDS: MetFORMIN HCL 500 MG TABLET PO SCH (06:38)
[2022-12-09] MEDS: ZIPRASIDONE HCL 60 MG CAPSULE PO SCH ×2 (06:39→17:44)
[2022-12-09] MEDS: LEVOTHYROXINE SODIUM 50 MCG TABLET PO SCH (06:39)
[2022-12-09] MEDS: INSULIN LISPRO 100 UNITS/ML SQ PRN ×3 (06:51→21:47)
[2022-12-09 07:20] LABS: GLUCOMETER DEV NAME(LOC) 3E.C; GLUCOSE,POINT OF CARE 219 MG/DL (70-110)
[2022-12-09] MEDS: SitaGLIPtin PHOSPHATE 100 MG TABLET PO SCH (08:36)
[2022-12-09] MEDS: ATORVASTATIN CALCIUM 40 MG TABLET PO SCH (08:36)
[2022-12-09] MEDS: ESCITALOPRAM OXALATE 20 MG TABLET PO SCH (08:36)
[2022-12-09] MEDS: PIOGLITAZONE HCL 30 MG TABLET PO SCH (08:36)
[2022-12-09 12:01] LABS: GLUCOMETER DEV NAME(LOC) 3E.I 2; GLUCOSE,POINT OF CARE 137 MG/DL (70-110)
[2022-12-09 15:41] VITALS: BP 93/54; PULSE 75; RESP 18; TEMP 97.3
[2022-12-09 16:56] LABS: GLUCOMETER DEV NAME(LOC) 3E.I 2; GLUCOSE,POINT OF CARE 191 MG/DL (70-110)
[2022-12-09 20:51] LABS: GLUCOMETER DEV NAME(LOC) 3E.C; GLUCOSE,POINT OF CARE 228 MG/DL (70-110)
[2022-12-09] MEDS: TraZODone HCL 50 MG TABLET PO SCH (20:57)
[2022-12-09] MEDS: INSULIN GLARGINE,HUM.REC.ANLOG 100 UNITS/ML SQ SCH (21:46)
[2022-12-09 22:47] VITALS: BP 102/63; PULSE 71; RESP 19; TEMP 97.1
[2022-12-10 05:51] LABS: GLUCOMETER DEV NAME(LOC) 3E.C; GLUCOSE,POINT OF CARE 175 MG/DL (70-110)
[2022-12-10] MEDS: INSULIN LISPRO 100 UNITS/ML SQ PRN ×4 (06:40→21:31)
[2022-12-10] MEDS: MetFORMIN HCL 500 MG TABLET PO SCH (06:46)
[2022-12-10] MEDS: LEVOTHYROXINE SODIUM 50 MCG TABLET PO SCH (06:46)
[2022-12-10] MEDS: ZIPRASIDONE HCL 60 MG CAPSULE PO SCH ×2 (06:46→17:38)
[2022-12-10] MEDS: PIOGLITAZONE HCL 30 MG TABLET PO SCH (08:29)
[2022-12-10 08:30] VITALS: BP 139/73; PULSE 81; RESP 18; TEMP 97.9
[2022-12-10] MEDS: SitaGLIPtin PHOSPHATE 100 MG TABLET PO SCH (08:30)
[2022-12-10] MEDS: ATORVASTATIN CALCIUM 40 MG TABLET PO SCH (08:30)
[2022-12-10] MEDS: ESCITALOPRAM OXALATE 20 MG TABLET PO SCH (08:30)
[2022-12-10 11:26] LABS: GLUCOMETER DEV NAME(LOC) 3E.I 2; GLUCOSE,POINT OF CARE 158 MG/DL (70-110)
[2022-12-10 17:16] LABS: GLUCOMETER DEV NAME(LOC) 3E.I 2; GLUCOSE,POINT OF CARE 201 MG/DL (70-110)
[2022-12-10 20:36] LABS: GLUCOMETER DEV NAME(LOC) 3E.C; GLUCOSE,POINT OF CARE 191 MG/DL (70-110)
[2022-12-10] MEDS: TraZODone HCL 50 MG TABLET PO SCH (20:55)
[2022-12-10] MEDS: INSULIN GLARGINE,HUM.REC.ANLOG 100 UNITS/ML SQ SCH (21:30)
[2022-12-10 21:47] VITALS: BP 108/67; PULSE 77; RESP 18; TEMP 97.6
[2022-12-11 06:02] LABS: GLUCOMETER DEV NAME(LOC) 3E.C; GLUCOSE,POINT OF CARE 128 MG/DL (70-110)
[2022-12-11] MEDS: INSULIN LISPRO 100 UNITS/ML SQ PRN ×2 (06:43→12:03)
[2022-12-11] MEDS: ZIPRASIDONE HCL 60 MG CAPSULE PO SCH (06:55)
[2022-12-11] MEDS: LEVOTHYROXINE SODIUM 50 MCG TABLET PO SCH (06:55)
[2022-12-11] MEDS: MetFORMIN HCL 500 MG TABLET PO SCH (06:55)
[2022-12-11] MEDS: PIOGLITAZONE HCL 30 MG TABLET PO SCH (08:33)
[2022-12-11] MEDS: SitaGLIPtin PHOSPHATE 100 MG TABLET PO SCH (08:33)
[2022-12-11] MEDS: ESCITALOPRAM OXALATE 20 MG TABLET PO SCH (08:34)
[2022-12-11] MEDS: ATORVASTATIN CALCIUM 40 MG TABLET PO SCH (08:34)
[2022-12-11 09:00] VITALS: BP 136/77; RESP 18
[2022-12-11] MEDS ORDERED: ATOR40TA71 PO (10:06)
[2022-12-11] MEDS ORDERED: PIOG30TA10 PO (10:06)
[2022-12-11] MEDS ORDERED: LEVO50 PO (10:06)
[2022-12-11] MEDS ORDERED: SITA100 PO (10:06)
[2022-12-11] MEDS ORDERED: METF-1211 PO (10:06)
[2022-12-11] MEDS ORDERED: ESCI20TA87 PO (10:06)
[2022-12-11] MEDS ORDERED: ZIPR60CA29 PO (10:07)
[2022-12-11] MEDS ORDERED: TRAZ-252 PO (10:07)
[2022-12-11 11:57] LABS: GLUCOMETER DEV NAME(LOC) 3E.I 2; GLUCOSE,POINT OF CARE 153 MG/DL (70-110)
== END 2022-12-11 15:45 | disposition home or self-care (01) | DRG 751 ==
LOC: EMS 18:15 → 3EI 23:11
PROVIDERS: ADMIT Psychiatry & Neurology Psychiatry; ATTEND Psychiatry & Neurology Psychiatry
DX: F33.3 Major depressive disorder, recurrent, severe with psychotic symptoms (principal); E11.9 Type 2 diabetes mellitus without complications; R45.851 Suicidal ideations; E03.9 Hypothyroidism, unspecified; Z20.822 Contact with and (suspected) exposure to COVID-19; K21.9 Gastro-esophageal reflux disease without esophagitis; I10 Essential (primary) hypertension; F41.9 Anxiety disorder, unspecified; E78.00 Pure hypercholesterolemia, unspecified; Z79.4 Long term (current) use of insulin; Z79.899 Other long term (current) drug therapy
CPT/HCPCS: 80053; 80061; 80307; 82962; 83036; 84443; 85025; 93005; 99285; G0480; J1815